=== PATIENT | male | born 1960 | race Hispanic/Latino ===

== ENCOUNTER 2018-11-27 12:53 | Outpatient (CLI) | payer MEDICARE ==
[2018-11-27 13:39] LABS: Alanine Aminotransferase 21 units/L (7-56); Albumin 4.1 g/dL (3.9-5); BUN/Creatinine Ratio 27; Blood Urea Nitrogen 16 mg/dL (9-20); Calcium 9.1 mg/dL (8.4-10.2); Hemolysis Index 17
== END 2018-11-27 12:54 | disposition home or self-care (01) ==
LOC: LAB 12:53
PROVIDERS: ATTEND Surgery
DX: L97.522 Non-pressure chronic ulcer of other part of left foot with fat layer exposed (principal); L89.624 Pressure ulcer of left heel, stage 4
CPT/HCPCS: 36415; 80053

== ENCOUNTER 2018-11-29 12:58 | Outpatient (CLI) | payer MEDICARE | END 2018-11-29 12:59 | disposition home or self-care (01) | LOC: WOUND 12:58 | PROVIDERS: ATTEND Surgery | DX: L97.522 Non-pressure chronic ulcer of other part of left foot with fat layer exposed (principal); L89.624 Pressure ulcer of left heel, stage 4; M86.472 Chronic osteomyelitis with draining sinus, left ankle and foot; G82.21 Paraplegia, complete; L95.9 Vasculitis limited to the skin, unspecified | CPT/HCPCS: 87075; 87116 ==

== ENCOUNTER 2018-12-05 09:03 | Outpatient (CLI) | payer MEDICARE | END 2018-12-05 09:04 | disposition home or self-care (01) | LOC: WOUND 09:03 | PROVIDERS: ATTEND Surgery | DX: L97.522 Non-pressure chronic ulcer of other part of left foot with fat layer exposed (principal); L89.624 Pressure ulcer of left heel, stage 4; L95.9 Vasculitis limited to the skin, unspecified; G82.21 Paraplegia, complete; M86.472 Chronic osteomyelitis with draining sinus, left ankle and foot ==

== ENCOUNTER 2018-12-12 08:51 | Outpatient (CLI) | payer MEDICARE | END 2018-12-12 08:52 | disposition home or self-care (01) | LOC: WOUND 08:51 | PROVIDERS: ATTEND Surgery | DX: L97.522 Non-pressure chronic ulcer of other part of left foot with fat layer exposed (principal); L89.624 Pressure ulcer of left heel, stage 4; L95.9 Vasculitis limited to the skin, unspecified; G82.21 Paraplegia, complete; M86.172 Other acute osteomyelitis, left ankle and foot ==

== ENCOUNTER 2018-12-19 08:51 | Outpatient (CLI) | payer MEDICARE ==
[2018-12-19] MEDS ORDERED: SILVER NITRATE TP ONE (10:00)
== END 2018-12-19 08:52 | disposition home or self-care (01) ==
LOC: WOUND 08:51
PROVIDERS: ATTEND Surgery
DX: L97.522 Non-pressure chronic ulcer of other part of left foot with fat layer exposed (principal); L89.624 Pressure ulcer of left heel, stage 4; L95.9 Vasculitis limited to the skin, unspecified; G82.21 Paraplegia, complete; M86.172 Other acute osteomyelitis, left ankle and foot

== ENCOUNTER 2018-12-26 08:55 | Outpatient (CLI) | payer MEDICARE | END 2018-12-26 08:56 | disposition home or self-care (01) | LOC: WOUND 08:55 | PROVIDERS: ATTEND Surgery | DX: L97.522 Non-pressure chronic ulcer of other part of left foot with fat layer exposed (principal); L89.624 Pressure ulcer of left heel, stage 4; L95.9 Vasculitis limited to the skin, unspecified; G82.21 Paraplegia, complete; M86.172 Other acute osteomyelitis, left ankle and foot | CPT/HCPCS: 99214; G0463 ==

== ENCOUNTER 2018-12-30 11:20 | Outpatient (CLI) | payer MEDICARE | END 2018-12-30 11:21 | disposition home or self-care (01) | LOC: WOUND 11:20 | PROVIDERS: ATTEND Surgery | DX: L97.522 Non-pressure chronic ulcer of other part of left foot with fat layer exposed (principal); L89.624 Pressure ulcer of left heel, stage 4; L95.9 Vasculitis limited to the skin, unspecified; G82.21 Paraplegia, complete; M86.172 Other acute osteomyelitis, left ankle and foot | CPT/HCPCS: 99214; G0463 ==

== ENCOUNTER 2019-01-02 07:57 | Outpatient (CLI) | payer MEDICARE | END 2019-01-02 07:58 | disposition home or self-care (01) | LOC: WOUND 07:57 | PROVIDERS: ATTEND Surgery | DX: L97.522 Non-pressure chronic ulcer of other part of left foot with fat layer exposed (principal); L89.624 Pressure ulcer of left heel, stage 4; L95.9 Vasculitis limited to the skin, unspecified; G82.21 Paraplegia, complete; M86.172 Other acute osteomyelitis, left ankle and foot ==

== ENCOUNTER 2019-01-09 07:59 | Outpatient (CLI) | payer MEDICARE | END 2019-01-09 08:00 | disposition home or self-care (01) | LOC: WOUND 07:59 | PROVIDERS: ATTEND Surgery | DX: L97.522 Non-pressure chronic ulcer of other part of left foot with fat layer exposed (principal); L89.624 Pressure ulcer of left heel, stage 4; L95.9 Vasculitis limited to the skin, unspecified; G82.21 Paraplegia, complete; M86.172 Other acute osteomyelitis, left ankle and foot | CPT/HCPCS: 97605 ==

== ENCOUNTER 2019-01-13 14:49 | Outpatient (CLI) | payer MEDICARE | END 2019-01-13 14:50 | disposition home or self-care (01) | LOC: WOUND 14:49 | PROVIDERS: ATTEND Surgery | DX: L97.522 Non-pressure chronic ulcer of other part of left foot with fat layer exposed (principal); L89.624 Pressure ulcer of left heel, stage 4; L95.9 Vasculitis limited to the skin, unspecified; G82.21 Paraplegia, complete; M86.172 Other acute osteomyelitis, left ankle and foot | CPT/HCPCS: 97605 ==

== ENCOUNTER 2019-01-16 08:09 | Outpatient (CLI) | payer MEDICARE | END 2019-01-16 08:10 | disposition home or self-care (01) | LOC: WOUND 08:09 | PROVIDERS: ATTEND Surgery | DX: L97.522 Non-pressure chronic ulcer of other part of left foot with fat layer exposed (principal); L89.624 Pressure ulcer of left heel, stage 4; L95.9 Vasculitis limited to the skin, unspecified; G82.21 Paraplegia, complete; M86.172 Other acute osteomyelitis, left ankle and foot | CPT/HCPCS: 97605 ==

== ENCOUNTER 2019-01-20 13:39 | Outpatient (CLI) | payer MEDICARE | END 2019-01-20 13:40 | disposition home or self-care (01) | LOC: WOUND 13:39 | PROVIDERS: ATTEND Surgery | DX: L97.521 Non-pressure chronic ulcer of other part of left foot limited to breakdown of skin (principal); L89.624 Pressure ulcer of left heel, stage 4; L95.9 Vasculitis limited to the skin, unspecified; M86.472 Chronic osteomyelitis with draining sinus, left ankle and foot; G82.21 Paraplegia, complete | CPT/HCPCS: 97605 ==

== ENCOUNTER 2019-01-22 10:59 | Outpatient (CLI) | payer MEDICARE | END 2019-01-22 11:00 | disposition home or self-care (01) | LOC: WOUND 10:59 | PROVIDERS: ATTEND Surgery | DX: L97.521 Non-pressure chronic ulcer of other part of left foot limited to breakdown of skin (principal); L89.624 Pressure ulcer of left heel, stage 4; L95.9 Vasculitis limited to the skin, unspecified; M86.472 Chronic osteomyelitis with draining sinus, left ankle and foot; G82.21 Paraplegia, complete | CPT/HCPCS: 97605 ==

== ENCOUNTER 2019-01-27 14:23 | Outpatient (CLI) | payer MEDICARE | END 2019-01-27 14:24 | disposition home or self-care (01) | LOC: WOUND 14:23 | PROVIDERS: ATTEND Surgery | DX: L97.521 Non-pressure chronic ulcer of other part of left foot limited to breakdown of skin (principal); L89.624 Pressure ulcer of left heel, stage 4; L95.9 Vasculitis limited to the skin, unspecified; M86.472 Chronic osteomyelitis with draining sinus, left ankle and foot; G82.21 Paraplegia, complete | CPT/HCPCS: 97605 ==

== ENCOUNTER 2019-01-30 13:42 | Outpatient (CLI) | payer MEDICARE | END 2019-01-30 13:43 | disposition home or self-care (01) | LOC: WOUND 13:42 | PROVIDERS: ATTEND Surgery | DX: L97.522 Non-pressure chronic ulcer of other part of left foot with fat layer exposed (principal); L89.624 Pressure ulcer of left heel, stage 4; L95.9 Vasculitis limited to the skin, unspecified; M86.472 Chronic osteomyelitis with draining sinus, left ankle and foot; G82.21 Paraplegia, complete | CPT/HCPCS: 97605 ==

== ENCOUNTER 2019-02-03 13:31 | Outpatient (CLI) | payer MEDICARE | END 2019-02-03 13:32 | disposition home or self-care (01) | LOC: WOUND 13:31 | PROVIDERS: ATTEND Surgery | DX: L97.522 Non-pressure chronic ulcer of other part of left foot with fat layer exposed (principal); L89.624 Pressure ulcer of left heel, stage 4; L95.9 Vasculitis limited to the skin, unspecified; M86.472 Chronic osteomyelitis with draining sinus, left ankle and foot; G82.21 Paraplegia, complete | CPT/HCPCS: 97605 ==

== ENCOUNTER 2019-02-06 13:24 | Outpatient (CLI) | payer MEDICARE | END 2019-02-06 13:25 | disposition home or self-care (01) | LOC: WOUND 13:24 | PROVIDERS: ATTEND Surgery | DX: L97.522 Non-pressure chronic ulcer of other part of left foot with fat layer exposed (principal); L89.624 Pressure ulcer of left heel, stage 4; L95.9 Vasculitis limited to the skin, unspecified; M86.472 Chronic osteomyelitis with draining sinus, left ankle and foot; G82.21 Paraplegia, complete | CPT/HCPCS: 97605 ==

== ENCOUNTER 2019-02-10 13:40 | Outpatient (CLI) | payer MEDICARE | END 2019-02-10 13:41 | disposition home or self-care (01) | LOC: WOUND 13:40 | PROVIDERS: ATTEND Surgery | DX: L97.522 Non-pressure chronic ulcer of other part of left foot with fat layer exposed (principal); L89.624 Pressure ulcer of left heel, stage 4; L95.9 Vasculitis limited to the skin, unspecified; M86.472 Chronic osteomyelitis with draining sinus, left ankle and foot; G82.21 Paraplegia, complete | CPT/HCPCS: 97605 ==

== ENCOUNTER 2019-02-13 10:18 | Outpatient (CLI) | payer MEDICARE | END 2019-02-13 10:19 | disposition home or self-care (01) | LOC: WOUND 10:18 | PROVIDERS: ATTEND Surgery | DX: L97.522 Non-pressure chronic ulcer of other part of left foot with fat layer exposed (principal); L89.624 Pressure ulcer of left heel, stage 4; L95.9 Vasculitis limited to the skin, unspecified; M86.472 Chronic osteomyelitis with draining sinus, left ankle and foot; G82.21 Paraplegia, complete | CPT/HCPCS: 97605 ==

== ENCOUNTER 2019-02-17 14:34 | Outpatient (CLI) | payer MEDICARE | END 2019-02-17 14:35 | disposition home or self-care (01) | LOC: WOUND 14:34 | PROVIDERS: ATTEND Surgery | DX: L97.521 Non-pressure chronic ulcer of other part of left foot limited to breakdown of skin (principal); L97.522 Non-pressure chronic ulcer of other part of left foot with fat layer exposed; L89.624 Pressure ulcer of left heel, stage 4; L95.9 Vasculitis limited to the skin, unspecified; M86.472 Chronic osteomyelitis with draining sinus, left ankle and foot; G82.21 Paraplegia, complete | CPT/HCPCS: 97605 ==

== ENCOUNTER 2019-02-20 13:58 | Outpatient (CLI) | payer MEDICARE | END 2019-02-20 13:59 | disposition home or self-care (01) | LOC: WOUND 13:58 | CPT/HCPCS: 97605 ==

== ENCOUNTER 2019-02-24 13:38 | Outpatient (CLI) | payer MEDICARE | END 2019-02-24 13:39 | disposition home or self-care (01) | LOC: WOUND 13:38 | PROVIDERS: ATTEND Surgery | DX: L97.521 Non-pressure chronic ulcer of other part of left foot limited to breakdown of skin (principal); L97.522 Non-pressure chronic ulcer of other part of left foot with fat layer exposed; L89.624 Pressure ulcer of left heel, stage 4; L95.9 Vasculitis limited to the skin, unspecified; M86.472 Chronic osteomyelitis with draining sinus, left ankle and foot; G82.21 Paraplegia, complete | CPT/HCPCS: 97605; 99214; G0463 ==

== ENCOUNTER 2019-03-04 08:25 | Outpatient (CLI) | payer MEDICARE | END 2019-03-04 08:26 | disposition home or self-care (01) | LOC: WOUND 08:25 | PROVIDERS: ATTEND Surgery | DX: L97.521 Non-pressure chronic ulcer of other part of left foot limited to breakdown of skin (principal); L97.522 Non-pressure chronic ulcer of other part of left foot with fat layer exposed; L89.624 Pressure ulcer of left heel, stage 4; L95.9 Vasculitis limited to the skin, unspecified; M86.472 Chronic osteomyelitis with draining sinus, left ankle and foot; G82.21 Paraplegia, complete ==

== ENCOUNTER 2019-03-11 08:30 | Outpatient (CLI) | payer MEDICARE | END 2019-03-11 08:31 | disposition home or self-care (01) | LOC: WOUND 08:30 | PROVIDERS: ATTEND Surgery | DX: L97.521 Non-pressure chronic ulcer of other part of left foot limited to breakdown of skin (principal); L97.522 Non-pressure chronic ulcer of other part of left foot with fat layer exposed; L89.624 Pressure ulcer of left heel, stage 4; L95.9 Vasculitis limited to the skin, unspecified; M86.472 Chronic osteomyelitis with draining sinus, left ankle and foot; G82.21 Paraplegia, complete | CPT/HCPCS: 99213; G0463 ==

== ENCOUNTER 2019-12-18 09:31 | Outpatient (CLI) | payer MEDICARE | END 2019-12-18 09:32 | disposition home or self-care (01) | LOC: WOUND 09:31 | PROVIDERS: ATTEND Surgery | DX: L97.521 Non-pressure chronic ulcer of other part of left foot limited to breakdown of skin (principal); L89.624 Pressure ulcer of left heel, stage 4; L95.9 Vasculitis limited to the skin, unspecified; M86.472 Chronic osteomyelitis with draining sinus, left ankle and foot; G82.21 Paraplegia, complete | CPT/HCPCS: 99212; G0463 ==